=== PATIENT | male | born 2000 | race Caucasian/White ===

== ENCOUNTER 2024-03-26 20:25 | Emergency (ER) | payer MEDICARE, OTHER ==
--- NOTE | 2024-03-26 20:55 | ED ---
Syncope HPI - General Source: patient, family, RN notes reviewed Mode of arrival: wheelchair Limitations: no limitations - History of Present Illness MD Complaint: loss of consciousness <Diya Gonzales - Last Filed: 03/26/24 20:56> - General Source: patient, family, RN notes reviewed, old records reviewed Mode of arrival: wheelchair Limitations: no limitations - History of Present Illness MD Complaint: loss of consciousness, collapsed -: hour(s) Prodromal Symptoms: none -: second(s) Witnessed: yes - by bystander Injuries Sustained Associated with Event: None Current Symptoms: back to baseline Context: at rest Treatments Prior to Arrival: none <Jose E Kuhn - Last Filed: 03/27/24 00:05> - General Chief Complaint: Syncope Stated Complaint: Syncope Time Seen by Provider: 03/26/24 20:50 - History of Present Illness Initial Comments: Quick Note: This is a 24-year-old male who presents to the emergency department for a syncopal episode. Patient was on the cough watching TV with his girlfriend when he suddenly became pale and slumped over. His girlfriend states that he lost consciousness and she could not arouse him. He gradually started to wake up on his own. She states that he was breathing heavily and almost snoring during this episode. He has no history of syncopal episodes in the past and states that he currently feels okay. (Diya Gonzales) This is a 24-year-old male for syncopal event while watching TV, by his girlfriend he became pale and passed out currently feels well. No history of syncope no recent illness no nausea vomit diarrhea fevers no headache chest pain shortness of breath or abdominal pain. Patient currently and here in the ER has no complaints (Jose E Kuhn) - Related Data Allergies Allergy/AdvReac Type Severity Reaction Status Date / Time No Known Allergies Allergy Verified 03/26/24 20:48 Review of Systems ROS Other: All systems not noted in ROS Statement are negative. <Diya Gonzales - Last Filed: 03/26/24 20:56> ROS Other: All systems not noted in ROS Statement are negative. <Jose E Kuhn - Last Filed: 03/27/24 00:05> ROS Statement: Those systems with pertinent positive or pertinent negative responses have been documented in the HPI. Past Medical History Smoking Status: Vaper Past Alcohol Use History: Occasional Past Drug Use History: None Reported <Diya Gonzales - Last Filed: 03/26/24 20:56> General Exam Limitations: no limitations <Diya Gonzales - Last Filed: 03/26/24 20:56> General appearance: alert, in no apparent distress Head exam: Present: atraumatic, normocephalic, normal inspection Eye exam: Present: normal appearance, PERRL, EOMI. Absent: scleral icterus, conjunctival injection, periorbital swelling ENT exam: Present: normal exam, mucous membranes moist Neck exam: Present: normal inspection. Absent: tenderness, meningismus, lymphadenopathy Respiratory exam: Present: normal lung sounds bilaterally. Absent: respiratory distress, wheezes, rales, rhonchi, stridor Cardiovascular Exam: Present: regular rate, normal rhythm, normal heart sounds. Absent: systolic murmur, diastolic murmur, rubs, gallop, clicks GI/Abdominal exam: Present: soft, normal bowel sounds. Absent: distended, tenderness, guarding, rebound, rigid Extremities exam: Present: normal inspection, full ROM, normal capillary refill. Absent: tenderness, pedal edema, joint swelling, calf tenderness Back exam: Present: normal inspection Neurological exam: Present: alert, oriented X3, CN II-XII intact Psychiatric exam: Present: normal affect, normal mood Skin exam: Present: warm, dry, intact, normal color. Absent: rash <Jose E Kuhn - Last Filed: 03/27/24 00:05> - General Exam Comments Initial Comments: Visual Physical Exam Vital signs reviewed General: Well-appearing, nontoxic, no acute distress. Head: Normocephalic, atraumatic Eyes: PERRLA, EOMI ENT: Airway patent Chest: Nonlabored breathing Skin: No visual rash, normal skin tone Neuro: Alert and oriented 3 Musculoskeletal: No gross abnormalities (Diya Gonzales) Course <Jose E Kuhn - Last Filed: 03/27/24 00:05> Vital Signs 03/26/24 20:46 Temperature 99 F Pulse Rate 105 H Respiratory 16 Rate Blood Pressure 137/82 O2 Sat by Pulse 97 Oximetry - Reevaluation(s) Reevaluation #1: 03/27/24 00:04 Medical records reviewed (Jose E Kuhn) Reevaluation #2: 03/27/24 00:04 No recurrent syncope here in the ER (Jose E Kuhn) Reevaluation #3: 03/27/24 00:04 Patient informed of results questions answered (Jose E Kuhn) Reevaluation #4: Was pt. sent in by a medical professional or institution ([facility], [facility], urgent care, hospital, or senior living...) When possible be specific @ -no Did you speak to anyone other than the patient for history (EMS, parent, family, police, friend...)? What history was obtained from this source @ -no Did you review nursing and triage notes (agree or disagree)? Why? @ -agree Are old charts reviewed (outside hosp., previous admission, EMS record, old EKG, old radiological studies, urgent care reports/EKG's, senior living records)? Report findings @ -yes Differential Diagnosis (chest pain, altered mental status, abdominal pain women, abdominal pain men, vaginal bleeding, weakness, fever, dyspnea, syncope, headache, dizziness, GI bleed, back pain, seizure, CVA, palpatations, mental health, musculoskeletal)? @ -prior EKG interpreted by me (3pts min.). @ -yes X-rays interpreted by me (1pt min.). @ -yes negative for acute disease CT interpreted by me (1pt min.). @ -no U/S interpreted by me (1pt. min.). @ -no What testing was considered but not performed or refused? (CT, X-rays, U/S, labs)? Why? @ -none What meds were considered but not given or refused? Why? @ -none Did you discuss the management of the patient with other professionals (claudio hill i.e. [facility], [facility], lab, RT, psych nurse, mental health social worker, director clinical data, teacher, press officer, corrections caseworker)? Give summary @ -no Was smoking cessation discussed for >3mins.? @ -no Was critical care preformed (if so, how long)? @ -no Were there social determinants of health that impacted care today? How? (Homelessness, low income, unemployed, alcoholism, drug addiction, transportation, low edu. Level, literacy, decrease access to med. care, snf, rehab)? @ -none Was there de-escalation of care discussed even if they declined (Discuss DNR or withdrawal of care, Hospice)? DNR status @ -no What co-morbidities impacted this encounter? (DM, HTN, Smoking, COPD, CAD, Cancer, CVA, ARF, Chemo, Hep., AIDS, mental health diagnosis, sleep apnea, morbid obesity)? @ -none Was patient admitted / discharged? Hospital course, mention meds given and route, prescriptions, significant lab abnormalities, going to OR and other pertinent info. @ - Undiagnosed new problem with uncertain prognosis? @ -no Drug Therapy requiring intensive monitoring for toxicity (Heparin, Nitro, Insulin, Cardizem)? @ -no Were any procedures done? @ -no Diagnosis/symptom? @ - Acute, or Chronic, or Acute on Chronic? @ -Acute Uncomplicated (without systemic symptoms) or Complicated (systemic symptoms)? @ -Complicated Side effects of treatment? @ -no Exacerbation, Progression, or Severe Exacerbation? @ -exacerbation Poses a threat to life or bodily function? How? (Chest pain, [place], [place], pneumonia, PE, COPD, DKA, ARF, appy, cholecystitis, CVA, Diverticulitis, Homicidal, Suicidal, threat to staff... and all critical care pts) @ -yes (Jose E Kuhn) Reevaluation #5: Differential Syncope: Valvular disease, hypertrophic cardiomyopathy, pulmonary embolism, tamponade, tachycardia, bradycardia, [place], hypovolemia, hemorrhage, dissection, anemia, intracranial hemorrhage, seizure, hypoglycemia, carbon monoxide poisoning, this is not meant to be an all-inclusive list. (Jose E Kuhn) EKG Findings - EKG Comments: EKG Findings:: EKG is sinus tachycardia 107 OR 130 QRS 85 QTc 378 - EKG Results: EKG: interpreted by ERMD <Jose E Kuhn - Last Filed: 03/27/24 00:05> Medical Decision Making <Diya Gonzales - Last Filed: 03/26/24 20:56> - Lab Data Result diagrams: 03/26/24 23:01 - EKG Data -: EKG Interpreted by Me <Jose E Kuhn - Last Filed: 03/27/24 00:05> - Medical Decision Making I performed the QuickNote portion of this chart. Signed Diya Gonzales PA-C. (Diya Gonzales) 24 male to ER for evaluation of syncopal event. No recurrent syncope here in the ER patient feels well and can be discharged home (Jose E Kuhn) - Lab Data Lab Results 03/26/24 03/26/24 Range/Units 23:01 23:10 WBC 20.1 H (3.8-10.6) k/uL RBC 5.52 (4.30-5.90) m/uL Hgb 15.7 (13.0-17.5) gm/dL Hct 46.9 (39.0-53.0) % MCV 84.9 (80.0-100.0) fL MCH 28.5 (25.0-35.0) pg MCHC 33.5 (31.0-37.0) g/dL RDW 12.6 (11.5-15.5) % Plt Count 314 (150-450) k/uL MPV 6.5 Neutrophils % 91 % Lymphocytes % 4 % Monocytes % 4 % Eosinophils % 1 % Basophils % 0 % Neutrophils # 18.3 H (1.3-7.7) k/uL Lymphocytes # 0.7 L (1.0-4.8) k/uL Monocytes # 0.8 (0-1.0) k/uL Eosinophils # 0.1 (0-0.7) k/uL Basophils # 0.1 (0-0.2) k/uL Urine Color Yellow Urine Appearance Clear (Clear) Urine pH 6.0 (5.0-8.0) Ur Specific [place] 1.027 (1.001-1.035) Urine Protein Trace H (Negative) Urine Glucose (UA) Trace H (Negative) Urine Ketones Negative (Negative) Urine Blood Negative (Negative) Urine Nitrite Negative (Negative) Urine Bilirubin Negative (Negative) Urine Urobilinogen 2.0 (<2.0) mg/dL Ur Leukocyte Esterase Negative (Negative) Disposition <Diya Gonzales - Last Filed: 03/26/24 20:56> Is patient prescribed a controlled substance at d/c from ED?: No <Jose E Kuhn - Last Filed: 03/27/24 00:05> Clinical Impression: Vasovagal syncope, Syncope due to orthostatic hypotension Disposition: HOME SELF-CARE Condition: Good Instructions (If sedation given, give patient instructions): Syncope (ED) Referrals: Nonstaff,Physician [Primary Care Provider] - 1-2 days
--- NOTE | 2024-03-26 21:27 | XR ---
EXAMINATION TYPE: XR chest 2V DATE OF EXAM: 03/26/2024 9:18 PM COMPARISON: None CLINICAL INDICATION: Male, 24 years old with history of syncope; [facility] TECHNIQUE: XR chest 2V Frontal and lateral views of the chest. FINDINGS: Lungs/Pleura: There is no evidence of pleural effusion, focal consolidation, or pneumothorax. Pulmonary vascularity: Unremarkable. Heart/mediastinum: Cardiomediastinal silhouette is unremarkable. Musculoskeletal: No acute osseous pathology. IMPRESSION: No acute cardiopulmonary disease/process. [facility], , 03/26/2024 9:24 PM
--- NOTE | 2024-03-26 21:36 | CT ---
EXAMINATION TYPE: CT brain wo con DATE OF EXAM: 03/26/2024 9:24 PM COMPARISON: None. CLINICAL INDICATION: Male, 24 years old with history of syncope, Passed out while watching TV and he just fell over, girlfriend said he was super pale. Patient states he feels fine right now. TECHNIQUE: Brain: Axial CT images of the brain were obtained with coronal and sagittal reformats created and rev iewed. Contrast used: None. Oral contrast used: None. CT DLP: 1125.4 mGycm, Automated exposure control for dose reduction was used. FINDINGS: Brain: Extra-axial spaces: No abnormal extra-axial fluid collections. Ventricular system: Within normal limits Cerebral parenchyma: No acute intraparenchymal hemorrhage or mass effect. The farley-white junction is well differentiated. Cerebellum: Unremarkable. Mass effect: No evidence of midline shift. Intracranial vasculature: unremarkable Soft tissues: Normal. Calvarium/osseous structures: No depressed skull fracture. Paranasal sinuses and mastoid air cells: Mild scattered paranasal sinus disease. Visualized orbits: Orbital contents are intact. IMPRESSION: No acute intracranial process. [facility], , 03/26/2024 9:33 PM
[2024-03-26 23:43] LABS: Basophils # (A) 0.1 k/uL (0-0.2); Basophils % (A) 0 %; Eosinophils # (A) 0.1 k/uL (0-0.7); Eosinophils % (A) 1 %; HCT 46.9 % (39.0-53.0); HGB 15.7 gm/dL (13.0-17.5); Lymphocytes # (A) 0.7 k/uL (1.0-4.8); Lymphocytes % (A) 4 %; MCH 28.5 pg (25.0-35.0); MCHC 33.5 g/dL (31.0-37.0); MCV 84.9 fL (80.0-100.0); Mean Platelet Volume 6.5; Monocytes # (A) 0.8 k/uL (0-1.0); Monocytes % (A) 4 %; Neutrophils # (A) 18.3 k/uL (1.3-7.7); Neutrophils % (A) 91 %; Platelet Count 314 k/uL (150-450); RBC 5.52 m/uL (4.30-5.90); RDW 12.6 % (11.5-15.5); WBC 20.1 k/uL (3.8-10.6)
[2024-03-26 23:54] LABS: Appearance,Urine Clear (Clear); Bilirubin,Urine Negative (Negative); Blood,Urine Negative (Negative); Color,Urine Yellow; Glucose,Urine (UA) Trace (Negative); Ketones,Urine Negative (Negative); Leukocyte Esterase,Urine Negative (Negative); Nitrite,Urine Negative (Negative); Protein,Urine Trace (Negative); Specific Gravity,Urine 1.027 (1.001-1.035)
[2024-03-27 00:02] LABS: ALT 28 U/L (4-49); African American GFR (CKD) >90 (>60 ml/min/1.73 sqM); Albumin 4.7 g/dL (3.5-5.0); Anion Gap 13 mmol/L; Blood Urea Nitrogen 18 mg/dL (9-20); Calcium 9.9 mg/dL (8.4-10.2); Carbon Dioxide 25 mmol/L (22-30); Chloride 99 mmol/L (98-107); Glucose 105 mg/dL (74-99); Magnesium 1.6 mg/dL (1.6-2.3); Non-African American GFR(CKD) >90 (>60 ml/min/1.73 sqM); Sodium 137 mmol/L (137-145); Total Bilirubin 0.8 mg/dL (0.2-1.3); Total Protein 7.7 g/dL (6.3-8.2)
[2024-03-27 00:04] LABS: AST 33 U/L (17-59); Alkaline Phosphatase 112 U/L (38-126); Potassium 4.2 mmol/L (3.5-5.1)
[2024-03-27 00:06] LABS: Amphetamine Screen,Urine Detected (NotDetected); Barbiturate Screen,Urine Not Detected (NotDetected); Benzodiazepines Screen,Urine Not Detected (NotDetected); Cocaine Screen,Urine Not Detected (NotDetected); Methadone Screen, Urine Not Detected (NotDetected); Opiate Screen,Urine Not Detected (NotDetected); Oxycodone Screen, Urine Not Detected (NotDetected); Phencyclidine Screen,Urine Not Detected (NotDetected); Tricyclic Antidepressant,Urine Not Detected (NotDetected); Urn Cannabinoid Scrn Not Detected (NotDetected)
[2024-03-27 00:13] VITALS: BP 136/89; PULSE 101; RESP 18; TEMP 98.4
== END 2024-03-27 00:14 | disposition home or self-care (01) ==
LOC: EDBD → EC 20:25
DX: I95.1 Orthostatic hypotension (principal); F17.290 Nicotine dependence, other tobacco product, uncomplicated
CPT/HCPCS: 36415; 70450; 71046; 80053; 80306; 81003; 83735; 85025; 93005; 99284